=== PATIENT | male | born 1990 | race Caucasian/White ===

== ENCOUNTER 2022-10-19 22:35 | Emergency (ER) | payer MEDICAID, SELFPAY ==
[2022-10-19 22:36] VITALS: BP 145/96; PULSE 86; RESP 18; TEMP 36.6; O2SAT 99; BMI 22.8
--- NOTE | 2022-10-19 22:44 | ED.DENTAL ---
HPI - Dental/Oral General Chief complaint: Dental/Oral Stated complaint: Dental Pain Time Seen by Provider: 10/19/22 22:44 Source: patient Mode of arrival: ambulatory Limitations: no limitations History of Present Illness HPI Narrative: 32-year-old male presents with 3 days of dental pain and dental caries. He presents for [facility], states that he does not have any new medications for pain and requires a prescription for ibuprofen. MD Complaint: tooth pain Teeth map: 1. Dental caries 2. Dental caries 3. Dental caries Onset (ago): day(s) (3) Duration: constant Severity: moderate Severity scale (1-10): 8 Relieving factors: nothing Exacerbating factors: chewing and cold Context: history of dental caries and poor dental care Associated symptoms: pain with swallowing and ear pain Treatment prior to arrival: none Related Data Previous Rx's Medication Instructions Recorded amoxicillin 875 mg-potassium 1 tab PO Q12H 10 days #20 tabs 10/19/22 clavulanate 125 mg tablet ibuprofen 600 mg tablet 600 mg PO Q6H PRN pain #60 tabs 10/19/22 Allergies Allergy/AdvReac Type Severity Reaction Status Date / Time haloperidol [From Haldol] Allergy Muscle Verified 10/19/22 22:39 cramps olanzapine [From Zyprexa] AdvReac Nausea and Verified 10/19/22 22:39 Vomiting Review of Systems Review of Systems: Constitutional: No Fever, No Chills ENT/Mouth: No swallowing difficulty, no change in voice, positive dental pain, positive jaw pain Eyes: No Eye Pain, No Swelling Cardiovascular: No Chest Pain, No SOB Respiratory: No Cough, No Sputum, No Wheezing, No Smoke Exposure, No Dyspnea Gastrointestinal: No Nausea, No Vomiting, No Diarrhea Genitourinary: No Dysuria Musculoskeletal: No Myalgias Neuro: No Weakness, No Numbness, No Headache Yes all other systems are reviewed and are negative [facility] Past Medical History Attestation statement: The following information was validated with the patient. Source: old records reviewed Social History Social History Advance Directives: No Advance Directives Information Provided: No Physical Exam Vital Signs: Vital Signs: Last Vital Signs Temp 98 F 10/19/22 22:36 Pulse 86 10/19/22 22:36 Resp 18 10/19/22 22:36 BP 145/96 H 10/19/22 22:36 Pulse Ox 99 10/19/22 22:36 O2 Del Method 10/19/22 22:36 BMI result Body Mass Index 22.8 Appearance: Alert. Oriented X3. Mild distress. Eyes: Pupils equal, round and reactive to light. ENT: Pharynx normal. Multiple dental caries and broken teeth. No abscesses noted. Neck: Normal inspection. Neck supple. No cervical lymphadenopathy. No mastoid tenderness noted. CVS: Normal heart rate and rhythm. Pulses normal. Respiratory: No respiratory distress. Breath sounds normal. Skin: Skin warm and dry. Normal skin color. Normal skin turgor. Extremities: Gait well-balanced will coordinated. Neuro: No motor deficit. No sensory deficit. Cranial nerves 2-12 intact. Course Course Course Narrative: 32-year-old male presents from [facility] for dental pain for the past 3 days. He has had poor dentition, and is unable to get ibuprofen because he does not have a prescription. Patient requires prescription for ibuprofen while at [facility] facility. Patient does not have any cervical lymphadenopathy, no mastoid tenderness, no indication of abscesses. Will order Toradol IM, Tdap, and Augmentin. I have referred patient to emergency dental, and prescribed Augmentin and ibuprofen. Patient will be returning back to [facility]. Patient verbalized understanding of and agrees to plan of care discharge home. Verbalized understanding of signs symptoms indicating need for emergent intervention. Medical Decision Making Differential Diagnosis Differential Diagnoses: The differential diagnosis associated with the presentation includes Dental caries, Discharge Plan Discharge Clinical Impression: Toothache, Dental caries Patient Disposition: Home, Self-Care Instructions: Toothache (ED) Additional Instructions: Your evaluated for dental pain. Please take Augmentin 875 mg twice a day for the next 10 days. You must follow-up with a dentist. Take ibuprofen 600 mg every 6 hours as needed for pain management. Your next dose of ibuprofen is due at 05:00. We updated your Tdap vaccine today. Drink plenty of fluids. Thank you for choosing this emergency department for evaluation. Please follow-up with primary care physician as needed. Return to the emergency department for any new, concerning, or worsening symptoms. Prescriptions: New amoxicillin-pot clavulanate 875-125 mg tablet 1 tab PO Q12H 10 Days Qty: 20 0RF ibuprofen 600 mg tablet 600 mg PO Q6H PRN (Reason: pain) Qty: 60 0RF Stand Alone Forms: Dental Emergency Numbers
[2022-10-20] MEDS: Diphth,Pertus(ACell),Tet Adult 0.5 ML SYRINGE IM (00:25)
[2022-10-20] MEDS: Ketorolac Tromethamine 60 MG/2 ML VIAL IM (00:25)
[2022-10-20] MEDS: Amoxicillin/Potassium Clav 875 MG TABLET PO (00:25)
== END 2022-10-20 00:32 | disposition home or self-care (01) ==
PROVIDERS: Emergency Provider Emergency Medicine
DX: K08.89 Other specified disorders of teeth and supporting structures (principal); K02.9 Dental caries, unspecified
CPT/HCPCS: 90471; 90715; 96372; 99283; 99284; J1885